=== PATIENT | male | born 1975 | race Caucasian/White ===

== ENCOUNTER 2017-11-08 01:16 | Emergency (ER) | payer SELFPAY ==
[2017-11-08] MEDS ORDERED: Acetaminophen/HYDROcodone 325-5 MG Tab PO ONE (01:43)
--- NOTE | 2017-11-08 01:49 | EDM.PDOC ---
ED HPI GENERAL MEDICAL PROBLEM - General Chief Complaint: Flank Pain Stated Complaint: KIDNEY STONES Time Seen by Provider: 11/08/17 01:23 - History of Present Illness INITIAL COMMENTS - FREE TEXT/NARRATIVE: HISTORY AND PHYSICAL: History of present illness: The patient is a 42-year-old male who follows in our family practice clinic and has a history of hypertension hypercholesterolemia and diabetes and who was seen on Thursday by Dr Cazares for left lower back/flank pain. The patient says he has had kidney stones before and this is how his pain usually presents and on Tuesday 11/06, about 30 hours ago, he had a CBC CMP and a CT scan of the abdomen and pelvis to look for a kidney stone. I have reviewed that CT scan which demonstrated a 1 mm stone in the right renal mid zone and there was no abnormality seen on the left kidney and ureters. The remainder of the exam was completely normal including the bony windows. The patient was given Flomax and Toradol to help with the pain and to assist with the right kidney stone. He doesn't have any pain on the right side and says that the pain in his left lower lumbar area has been persistent without bowel or bladder disturbances and it does not radiate to his leg. He has no anterior abdominal pain no nausea no vomiting no cough no fevers no chills no diarrhea and has been eating and drinking normally. He has had no recent trauma. The patient is somewhat insistent on my evaluation that this is very classic for his kidney stones and he does not understand where the pain is coming from if it is not a kidney stone. He has not taken anything for the pain other than oral Toradol Patient does tell me that the pain seems to be worse at nighttime he is trying to sleep and less when he is up and active. Also says that if he gets up from bed and moves around it does improve as well. Review of systems: As per history of present illness and below otherwise all systems reviewed and negative. Past medical history: As per history of present illness and as reviewed below otherwise noncontributory. Surgical history: As per history of present illness and as reviewed below otherwise noncontributory. Social history: No reported history of drug or alcohol abuse. Family history: As per history of present illness and as reviewed below otherwise noncontributory. Physical exam: Gen.: Well-developed well-nourished man who is nontoxic and moves easily in the ED without distress. His vital signs have been noted by me. HEENT: Atraumatic, normocephalic, negative for conjunctival pallor or scleral icterus, mucous membranes moist, throat clear, neck supple, nontender, trachea midline. Lungs: Clear to auscultation, breath sounds equal bilaterally, chest nontender. Heart: S1S2, regular rate and rhythm no overt murmurs Abdomen: Soft, nondistended, nontender. Negative for masses or hepatosplenomegaly. Negative for costovertebral tenderness. On palpation I'm unable to reproduce any abdominal or flank tenderness and there is no rebound guarding and bowel sounds are hypoactive. Pelvis: Stable nontender. Genitourinary: Deferred. Rectal: Deferred. Extremities: Atraumatic, negative for cords or calf pain. Neurovascular unremarkable. Neuro: Awake, alert, oriented. Cranial nerves II through XII unremarkable. Cerebellum unremarkable. Motor and sensory unremarkable throughout. Exam nonfocal. Back: There are no midline step-offs in his defects of the thoracic or lumbar spine no posterior rib or posterior pelvis tenderness and I'm unable to reproduce the pain when I palpate the left lower lumbar area and into the buttocks area. The patient does not have a positive straight leg rise and able to range of motion at the hip and leg without difficulty. Diagnostics: CBC CMP lipase UA CT scan of the abdomen and pelvis performed on November 06 was reviewed by me as above Therapeutics: Martin Méndez Impression: Left lumbar lower back pain/musculoskeletal pain stable Definitive disposition and diagnosis as appropriate pending reevaluation and review of above. left flank Pain Score (Numeric/FACES): 8 - Related Data Allergies Allergy/AdvReac Type Severity Reaction Status Date / Time No Known Allergies Allergy Verified 11/08/17 01:30 Home Meds: Home Meds Ketorolac [Toradol] 10 mg PO Q6H PRN 11/08/17 [History] Lisinopril 10 mg PO DAILY 11/08/17 [History] Simvastatin [Zocor] 40 mg PO BEDTIME 11/08/17 [History] Tamsulosin [Flomax] 0.8 mg PO DAILY 11/08/17 [History] metFORMIN [Glucophage XR] 500 mg PO DAILY 11/08/17 [History] Past Medical History - Past Health History Medical/Surgical History: Denies Medical/Surgical History HEENT History: Reports: None Cardiovascular History: Reports: High Cholesterol, Hypertension Respiratory History: Reports: None Other Respiratory History: Denies, History of tobacco dependence Gastrointestinal History: Reports: None Other Gastrointestinal History: Heartburn treat with Rolaids, otc Zantac Genitourinary History: Reports: None Musculoskeletal History: Reports: None Other Musculoskeletal History: hx: fracturing nose, and Fracture to Left eye socket Neurological History: Reports: None Psychiatric History: Reports: None Endocrine/Metabolic History: Reports: Diabetes, Type II Hematologic History: Reports: None Immunologic History: Reports: None Oncologic (Cancer) History: Reports: None Dermatologic History: Reports: None - Infectious Disease History Infectious Disease History: Reports: None - Past Surgical History Other HEENT Surgeries/Procedures: Hx: fracture to nose and Left eye socket with Repair of Eye socket "with titanium" Social & Family History - Family History Family Medical History: Noncontributory - Tobacco Use Smoking Status *Q: Former Smoker Years of Tobacco use: 15 Used Tobacco, but Quit: No Month Tobacco Last Used: 1 week ago - Caffeine Use Caffeine Use: Reports: Soda - Alcohol Use Days Per Week of Alcohol Use: 0 - Recreational Drug Use Recreational Drug Use: No Drug Use in Last 12 Months: No ED ROS GENERAL - Review of Systems Review Of Systems: ROS reveals no pertinent complaints other than HPI. ED EXAM, GENERAL - Physical Exam Exam: See Below (see dictation) Course - Vital Signs Last Recorded V/S: Last Vital Signs Temp 36.8 C 11/08/17 01:30 Pulse 95 11/08/17 01:30 Resp 18 11/08/17 01:30 BP 138/87 11/08/17 01:30 Pulse Ox 98 11/08/17 01:30 - Orders/Labs/Meds Labs: Laboratory Tests 11/08/17 11/08/17 11/08/17 Range/Units 01:50 02:03 02:03 WBC 8.29 (4.0-11.0) K/uL RBC 4.86 (4.50-5.90) M/uL Hgb 14.1 (13.0-17.0) g/dL Hct 41.9 (38.0-50.0) % MCV 86.2 (80.0-98.0) fL MCH 29.0 (27.0-32.0) pg MCHC 33.7 (31.0-37.0) g/dL RDW Std Deviation 40.6 (28.0-62.0) fl RDW Coeff of Jose L 13 (11.0-15.0) % Plt Count 207 (150-400) K/uL MPV 9.90 (7.40-12.00) fL Neut % (Auto) 48.6 (48.0-80.0) % Lymph % (Auto) 39.4 (16.0-40.0) % Boyle % (Auto) 9.8 (0.0-15.0) % Eos % (Auto) 1.7 (0.0-7.0) % Baso % (Auto) 0.5 (0.0-1.5) % Neut # (Auto) 4.0 (1.4-5.7) K/uL Lymph # (Auto) 3.3 H (0.6-2.4) K/uL Boyle # (Auto) 0.8 (0.0-0.8) K/uL Eos # (Auto) 0.1 (0.0-0.7) K/uL Baso # (Auto) 0.0 (0.0-0.1) K/uL Nucleated RBC % 0.0 /100WBC Nucleated RBCs # 0 K/uL Sodium 136 (136-146) mmol/L Potassium 3.9 (3.5-5.1) mmol/L Chloride 105 (98-110) mmol/L Carbon Dioxide 22 (21-31) mmol/L BUN 15 (6.0-23.0) mg/dL Creatinine 0.8 (0.6-1.5) mg/dL Est Cr Clr Drug Dosing 110.17 mL/min Estimated GFR (MDRD) > 60.0 ml/min Glucose 188 H (60-110) mg/dL Calcium 10.1 (8.8-10.8) mg/dL Total Bilirubin 0.2 (0.1-1.5) mg/dL AST 17 (5-40) IU/L ALT 35 (8-54) IU/L Alkaline Phosphatase 27 L (40-150) Total Protein 6.8 (6.0-8.0) g/dL Albumin 4.0 (3.5-5.0) g/dL Globulin 2.8 (2.0-3.5) g/dL Albumin/Globulin Ratio 1.4 (1.3-2.8) Lipase 29 (7-80) U/L Urine Color YELLOW Urine Appearance CLEAR Urine pH 5.5 (5.0-8.0) Ur Specific [place] 1.025 (1.001-1.035) Urine Protein NEGATIVE (NEGATIVE) mg/dL Urine Glucose (UA) >=1000 (NEGATIVE) mg/dL Urine Ketones TRACE H (NEGATIVE) mg/dL Urine Occult Blood TRACE-LYSED (NEGATIVE) Urine Nitrite NEGATIVE (NEGATIVE) Urine Bilirubin NEGATIVE (NEGATIVE) Urine Urobilinogen 0.2 (<2.0) EU/dL Ur Leukocyte Esterase NEGATIVE (NEGATIVE) Urine RBC 0-2 (0-2/HPF) Urine WBC 0-1 (0-5/HPF) Ur Epithelial Cells RARE (NONE-FEW) Urine Bacteria RARE (NEGATIVE) Meds: Medications Discontinued Medications Generic Name Dose Route Start Last Admin Trade Name Freq PRN Reason Stop Dose Admin Hydrocodone Bitart/Acetaminophen 1 tab 11/08/17 01:43 11/08/17 01:52 [place] 325-5 Mg PO 11/08/17 01:44 1 tab ONETIME ONE Administration Orphenadrine Citrate 60 mg 11/08/17 01:43 11/08/17 01:53 Norflex IM 11/08/17 01:44 60 mg ONETIME ONE Administration Departure - Departure Time of Disposition: 02:42 Disposition: Home, Self-Care 01 Condition: Good Clinical Impression: Musculoskeletal back pain - Discharge Information Referrals: Forest Owen DO [Primary Care Provider] - Forms: ED Department Discharge Additional Instructions: The following information is given to patients seen in the emergency department who are being discharged to home. This information is to outline your options for follow-up care. We provide all patients seen in our emergency department with a follow-up referral. The need for follow-up, as well as the timing and circumstances, are variable depending upon the specifics of your emergency department visit. If you don't have a primary care physician on staff, we will provide you with a referral. We always advise you to contact your personal physician following an emergency department visit to inform them of the circumstance of the visit and for follow-up with them and/or the need for any referrals to a consulting specialist. The emergency department will also refer you to a specialist when appropriate. This referral assures that you have the opportunity for followup care with a specialist. All of these measure are taken in an effort to provide you with optimal care, which includes your followup. Under all circumstances we always encourage you to contact your private physician who remains a resource for coordinating your care. When calling for followup care, please make the office aware that this follow-up is from your recent emergency room visit. If for any reason you are refused follow-up, please contact the [facility] emergency department at and ask to speak to the emergency department charge nurse. [facility] Primary care- [place] [address] Heat to area and try to stretch and open up the spaces as we discussed. Use over -the-counter ibuprofen/Motrin or the Toradol that you have as an anti- inflammatory and for pain and also add a muscle relaxer given you here. He may also take the tramadol as prescribed in addition to the Toradol or ibuprofen but did not take it with the Norflex. Please contact the clinic on Thursday for further care and evaluation and return to the ER as needed and as discussed. Try to do all activities more slowly and carefully
[2017-11-08 02:30] LABS: CHLORIDE,CL 105 mmol/L (98-110); SODIUM,NA 136 mmol/L (136-146)
[2017-11-08 02:58] VITALS: BP 141/78
== END 2017-11-08 03:02 | disposition home or self-care (01) ==
LOC: MW.ED 01:16
DX: M54.5 Low back pain (principal); E78.00 Pure hypercholesterolemia, unspecified; I10 Essential (primary) hypertension; E11.9 Type 2 diabetes mellitus without complications; Z87.891 Personal history of nicotine dependence; Z79.84 Long term (current) use of oral hypoglycemic drugs; Z79.899 Other long term (current) drug therapy
CPT/HCPCS: 36415; 80053; 81001; 83690; 85025; 96372; 99284; A9270; J2360

== ENCOUNTER 2023-03-25 11:16 | Day surgery (SDC) | payer BC ==
[~2023-03-25 11:16] MED LIST: Lactated Ringers 1,000 ML IV SCH
[2023-03-25] MEDS ORDERED: Lidocaine 2% 5 ML SDV ONE (13:04)
[2023-03-25] MEDS ORDERED: Propofol 200 MG/20 ML SDV ONE (13:04)
[2023-03-25 13:57] VITALS: BP 108/82; PULSE 74
== END 2023-03-25 14:00 | disposition home or self-care (01) ==
LOC: MW.SDS 11:16
PROVIDERS: ATTEND Surgery
DX: Z12.11 Encounter for screening for malignant neoplasm of colon (principal); K63.5 Polyp of colon; K64.8 Other hemorrhoids; I10 Essential (primary) hypertension; E11.9 Type 2 diabetes mellitus without complications; E66.9 Obesity, unspecified; E78.00 Pure hypercholesterolemia, unspecified; Z79.899 Other long term (current) drug therapy; Z79.84 Long term (current) use of oral hypoglycemic drugs; Z98.890 Other specified postprocedural states; Z87.891 Personal history of nicotine dependence; Z68.33 Body mass index [BMI] 33.0-33.9, adult
CPT/HCPCS: 45380; 45385; J2704; J7120; 00811; J3490

== ENCOUNTER 2024-01-15 05:11 | Emergency (ER) | payer BC ==
[2024-01-15] MEDS: Sodium Chloride 0.9% 500 ML IV SCH (05:35)
[2024-01-15 05:36] LABS: BASOPHILS ABSOLUTE AUTO 0.05 K/uL (0.00-0.20); BASOPHILS PERCENT AUTO 0.4 % (0.0-1.0); EOSINOPHILS ABSOLUTE AUTO 0.17 K/uL (0.00-0.45); EOSINOPHILS PERCENT AUTO 1.3 % (0.0-6.0); HEMATOCRIT 45.7 % (42.0-52.0); HEMOGLOBIN 15.3 g/dL (14.0-18.0); IMMATURE GRAN ABSOLUTE AUTO 0.05 K/uL (0.00-0.05); IMMATURE GRAN PERCENT AUTO 0.4 % (0.0-0.4); LYMPHOCYTES ABSOLUTE AUTO 1.73 K/uL (1.00-4.80); LYMPHOCYTES PERCENT AUTO 13.7 % (24.0-44.0); MEAN CORPUSCULAR HEMOGLOBIN 29.3 pg (28.0-32.0); MEAN CORPUSCULAR HGB CONC 33.5 g/dL (32.0-36.0); MEAN CORPUSCULAR VOLUME 87.4 fL (83.0-99.0); MEAN PLATELET VOLUME 9.3 fL (9.4-12.4); MONOCYTES ABSOLUTE AUTO 0.89 K/uL (0.00-0.80); MONOCYTES PERCENT AUTO 7.1 % (0.0-8.0); NEUTROPHILS ABSOLUTE AUTO 9.71 K/uL (1.80-7.70); NEUTROPHILS PERCENT AUTO 77.1 % (41.0-71.0); PLATELET COUNT,PLT 228 K/uL (150-400); RED BLOOD CELL COUNT 5.23 M/uL (4.52-5.90)
[2024-01-15] MEDS: Ketorolac 30 MG/ML SDV IVPUSH ONE (05:36)
[2024-01-15] MEDS: Ondansetron 4 MG/2 ML SDV IVPUSH ONE (05:36)
[2024-01-15] MEDS: Sodium Chloride 0.9% 10 ML Syringe FLUSH PRN (05:39)
[2024-01-15] MEDS: Sodium Chloride 0.9% 2.5 ML Syringe FLUSH PRN (05:39)
[2024-01-15 05:46] LABS: A/G RATIO 1.2 (0.9-1.6); ALBUMIN 4.2 g/dL (3.4-5.0); BILIRUBIN TOTAL 0.4 mg/dL (0.2-1.0); CALCIUM 9.1 mg/dL (8.5-10.1); CARBON DIOXIDE,CO2 23.3 mmol/L (21.0-32.0); CREATININE 1.1 mg/dL (0.8-1.3); EST CRCL DRUG DOSING (CG) 75.11 mL/min; POTASSIUM,K 4.1 mmol/L (3.5-5.1); PROTEIN TOTAL,TP 7.8 g/dL (6.4-8.2)
[2024-01-15 06:15] LABS: APPEARANCE,URINE CLEAR; BILIRUBIN,URINE NEGATIVE (NEGATIVE); COLOR,URINE YELLOW; GLUCOSE,URINE >=1000 mg/dL (NEGATIVE); KETONES,URINE NEGATIVE (NEGATIVE); LEUKOCYTE ESTERASE,URINE NEGATIVE (NEGATIVE); NITRITE,URINE NEGATIVE (NEGATIVE); OCCULT BLOOD,URINE MODERATE (NEGATIVE); PH,URINE 5.5 (5.0-8.0); PROTEIN,URINE NEGATIVE (NEGATIVE); UROBILINOGEN,URINE 0.2 EU/dL (<2.0)
[2024-01-15 06:24] LABS: WBC,URINE 0-1 (0-5/HPF)
[2024-01-15 06:25] LABS: BACTERIA,URINE NOT SEEN (NEGATIVE); EPITHELIAL CELLS,URINE NOT SEEN (NONE-FEW)
[2024-01-15 07:11] VITALS: BP 136/88; PULSE 100
== END 2024-01-15 07:10 | disposition home or self-care (01) ==
LOC: MW.ED 05:11
DX: N20.0 Calculus of kidney (principal); I10 Essential (primary) hypertension; E78.00 Pure hypercholesterolemia, unspecified; E11.9 Type 2 diabetes mellitus without complications; Z79.899 Other long term (current) drug therapy; Z75.3 Unavailability and inaccessibility of health-care facilities
CPT/HCPCS: 36415; 74176; 80053; 81001; 83690; 85025; 96361; 96374; 96375; 99284; J1885; J2405; J3490; J7040